=== PATIENT | male | born 1995 | race African-American/Black ===

== ENCOUNTER 2016-06-30 19:02 | Emergency (ER) | payer OTHER ==
[2016-06-30 20:36] LABS: APPEARANCE CLEAR (CLEAR); BILIRUBIN NEGATIVE (NEGATIVE); COLOR YELLOW (YELLOW); GLUCOSE NEGATIVE (NEGATIVE); KETONE NEGATIVE (NEGATIVE); LEUKOCYTE ESTERASE TRACE (NEGATIVE); NITRITE NEGATIVE (NEGATIVE); PROTEIN TRACE mg/dL (NEGATIVE); UROBILINOGEN NORMAL (NORMAL)
[2016-06-30 20:37] LABS: BACTERIA FEW /hpf (NONE SEEN); CALCIUM OXALATE CRYSTALS 0-5 /hpf (NONE SEEN); EPITHELIAL CELLS 0-5 /hpf (0-5); MUCUS <1+ /lpf (NONE SEEN); RED CELLS - URINE 0-5 /hpf (0-5); WHITE CELLS - URINE 0-5 /hpf (0-5)
[2016-06-30 20:42] LABS: BASOPHILS 0.2 % (0.0-2.0); EOSINOPHILS 2.5 % (0-7); HEMATOCRIT 46.6 % (42.0-54.0); HEMOGLOBIN 16.1 g/dL (13.5-17.5); IMMATURE GRANULOCYTES 0.2 % (0-5); LYMPHOCYTES 30.4 % (15-50); MCHC 34.5 g/dL (31.0-37.0); MCV 86.9 fL (80.0-100.0); MEAN PLATELET VOLUME 9.4 fL (7.4-10.4); MONOCYTES 8.1 % (2-11); NEUTROPHILS 58.6 % (40-80); PLATELET COUNT 204 10x3/uL (130-400); RBC 5.36 10x6/uL (4.20-6.10); RDW 12.2 % (11.5-14.5); WBC 6.3 10x3/uL (4.8-10.8)
[2016-06-30 20:44] LABS: UDS - AMPHET NEGATIVE QUAL (NEGATIVE); UDS - BARB NEGATIVE QUAL (NEGATIVE); UDS - BENZO NEGATIVE QUAL (NEGATIVE); UDS - COCAINE NEGATIVE QUAL (NEGATIVE); UDS - METH NEGATIVE QUAL (NEGATIVE); UDS - OPIATE NEGATIVE QUAL (NEGATIVE); UDS - PCP NEGATIVE QUAL (NEGATIVE); UDS - THC POSITIVE QUAL (NEGATIVE)
[2016-06-30 20:59] LABS: ALBUMIN 4.4 g/dL (3.4-5.0); ALKALINE PHOSPHATASE 88 U/L (46-116); ALT (SGPT) 66 U/L (10-68); BILIRUBIN - TOTAL 1.14 mg/dL (0.2-1.3); CALC OSMOLALITY 277 mosm/kg (275-300); CARBON DIOXIDE 30.4 mmol/L (21.0-32.0); CHLORIDE - SERUM 103 mmol/L (98-107); CREATININE - SERUM 1.2 mg/dL (0.6-1.3); GLUCOSE 90 mg/dL (74-106); POTASSIUM - SERUM 3.8 mmol/L (3.5-5.1); PROTEIN - SERUM 8.2 g/dL (6.4-8.2); SODIUM 140 mmol/L (136-145); UREA NITROGEN 10 mg/dL (7-18); eGFR NON AFRICAN AMERICAN 80 mL/min (90-120)
== END 2016-06-30 22:23 | disposition home or self-care (01) ==
LOC: D.ER 19:02
PROVIDERS: Emergency Medicine; Physician Assistant Medical
DX: F41.9 Anxiety disorder, unspecified (principal); F60.9 Personality disorder, unspecified; F32.9 Major depressive disorder, single episode, unspecified; F17.200 Nicotine dependence, unspecified, uncomplicated; F12.10 Cannabis abuse, uncomplicated

== ENCOUNTER 2016-07-22 22:12 | Emergency (ER) | payer OTHER | END 2016-07-23 01:30 | disposition home or self-care (01) | LOC: D.ER 22:12 | DX: T78.40XA Allergy, unspecified, initial encounter (principal); X58.XXXA Exposure to other specified factors, initial encounter; F60.9 Personality disorder, unspecified; F41.9 Anxiety disorder, unspecified; F32.9 Major depressive disorder, single episode, unspecified ==

== ENCOUNTER 2017-04-30 19:57 | Emergency (ER) | payer OTHER | END 2017-04-30 20:58 | disposition home or self-care (01) | LOC: D.ER 19:57 | DX: A60.00 Herpesviral infection of urogenital system, unspecified (principal) ==

== ENCOUNTER 2018-07-11 14:07 | Emergency (ER) | payer OTHER ==
[~2018-07-11] VITALS: Ht 182.9 cm; Wt 122.7 kg
[2018-07-11 14:13] VITALS: BP 120/92; Ht 182.9 cm; Wt 122.7 kg
[2018-07-11 14:51] LABS: BASOPHILS 0.6 % (0-2); HEMATOCRIT 41.2 % (42.0-54.0); HEMOGLOBIN 14.9 g/dL (13.5-17.5); IMMATURE GRANULOCYTES 0.2 % (0-5); LYMPHOCYTES 19.8 % (15-50); MCH 30.4 pg (26.0-34.0); MCHC 36.2 g/dL (31.0-37.0); MCV 84.1 fL (80.0-100.0); MEAN PLATELET VOLUME 9.1 fL (7.4-10.4); NEUTROPHILS 67.4 % (40-80); PLATELET COUNT 193 10x3/uL (130-400); RDW 12.2 % (11.5-14.5); WBC 6.5 10x3/uL (4.8-10.8)
[2018-07-11 15:09] LABS: ALBUMIN 3.6 g/dL (3.4-5.0); ALKALINE PHOSPHATASE 84 U/L (46-116); ALT (SGPT) 60 U/L (10-68); BILIRUBIN - TOTAL 0.49 mg/dL (0.2-1.3); CALC OSMOLALITY 273 mosm/kg (275-300); CALCIUM 8.6 mg/dL (8.5-10.1); CARBON DIOXIDE 26.2 mmol/L (21.0-32.0); CHLORIDE - SERUM 104 mmol/L (98-107); CREATININE - SERUM 1.1 mg/dL (0.6-1.3); GLUCOSE 94 mg/dL (74-106); POTASSIUM - SERUM 3.7 mmol/L (3.5-5.1); PROTEIN - SERUM 7.7 g/dL (6.4-8.2); SODIUM 138 mmol/L (136-145); UREA NITROGEN 8 mg/dL (7-18); eGFR NON AFRICAN AMERICAN 87 mL/min (90-120)
[2018-07-11 15:23] LABS: CKMB 3.6 U/L (0.0-3.6); MAGNESIUM - SERUM 1.9 mg/dL (1.8-2.4)
[2018-07-11 15:24] LABS: CREATINE KINASE 1146 UL (21-232); TROPONIN-I < 0.017 ng/mL (0.000-0.060)
[2018-07-11 15:35] LABS: APTT 26.6 SECONDS (22.8-39.4); INR 0.91 (0.85-1.17); PROTIME 11.7 SECONDS (11.6-15.0)
[2018-07-11] MEDS ORDERED: OMEPRAZOLE40 MG PO (15:54)
== END 2018-07-11 16:05 | disposition left against medical advice (07) ==
LOC: D.ER 14:07
PROVIDERS: Family Medicine
DX: F41.9 Anxiety disorder, unspecified (principal); R12 Heartburn